=== PATIENT | female | born 1990 | race Hispanic/Latino ===

== ENCOUNTER 2017-03-22 11:15 | Emergency (ER) | payer SELFPAY ==
[2017-03-22 11:32] VITALS: TEMP 96.4
[2017-03-22] MEDS ORDERED: PANTOPRAZOLE SODIUM IV 40 MG VIAL IV ONE (11:45)
[2017-03-22] MEDS ORDERED: ALUM & MAG HYDROX-SIMETHICONE 30 ML, LIDOCAINE VISCOUS 2% 15 ML PO ONE ×2 (11:45)
--- NOTE | 2017-03-22 11:48 | ED.PDOC ---
History of Present Illness - General Chief Complaint: Abdominal Pain Stated Complaint: vomited bile,abd pain Time Seen by Provider: 03/22/17 11:35 Information Source: patient Exam Limitations: no limitations - History of Present Illness Initial Comments: EPIGASTRIC AND RUQ PAIN ONSET LAST NIGHT ASSOCIATED WITH BILIOUS EMESIS X 1. THE PAIN SEEMS TO BE MORE BURNING TYPE THAT RADIATES TO THE BACK RATED 6-7/10. SHE HAS TAKEN ONE TYLENOL 3 AND IBUPROFEN FOR THE PAIN PRIOR TO ARRIVAL. SHE ALSO DISCLOSES THAT SHE HAS CHILDBIRTH 3 MONTHS AGO. Abdominal Pain Onset Location: RUQ, epigastric Pain Radiation: back Quality: moderate, burning Timing/Duration: 7-24 hours Improving Factors: nothing Worsening Factors: nothing Associated Symptoms: back pain, heartburn, nausea/vomiting Review of Systems - Review of Systems Constitutional: States: malaise EENTM: States: no symptoms reported Respiratory: States: no symptoms reported Cardiology: States: no symptoms reported Gastrointestinal/Abdominal: States: abdominal pain, constipation, nausea, vomiting Genitourinary: States: no symptoms reported Musculoskeletal: States: no symptoms reported Skin: States: no symptoms reported Neurological: States: no symptoms reported Endocrine: States: no symptoms reported Hematologic/Lymphatic: States: no symptoms reported Past Medical History (General) - Patient Medical History Hx Congestive Heart Failure: No Hx Diabetes: No Surgical History: no surgical history - Vaccination History Hx Influenza Vaccination: No - Social History Hx Tobacco Use: Yes - Female History Patient is a Female of Child Bearing Age (10 -59 yrs old): Yes - post 3 months and Patient : No Family Medical History - Family History Mother Family History: Unknown Living Status: Unknown Physical Exam - Physical Exam General Appearance: Alert, No apparent distress, Well Developed, Well Hydrated, Well Nourished Eyes, Ears, Nose, Throat Exam: PERRL/EOMI, normal ENT inspection Neck: non-tender, full range of motion, supple, normal inspection Respiratory: chest non-tender, lungs clear, normal breath sounds, no respiratory distress, no accessory muscle use Cardiovascular/Chest: normal peripheral pulses, regular rate, rhythm, no edema, no gallop, no JVD, no murmur Peripheral Pulses: No deficit Gastrointestinal/Abdominal: normal bowel sounds, no organomegaly, no pulsatile mass, distended, other - EPIGASTRIC AND RUQ PAIN ON PALPATION. NEGATIVE CORTES' S SIGN Rectal Exam: deferred Back Exam: normal inspection, no CVA tenderness, no vertebral tenderness Extremity: normal range of motion, non-tender, normal inspection, no pedal edema Neurologic: no motor/sensory deficits, alert, normal mood/affect, oriented x 3 Skin Exam: normal color Lymphatic: no adenopathy Progress - Results/Orders Results/Orders: NO RESULTS YET BUT THE PATIENT RECEIVED A GI SLIDER AND PROTONIX 40 MG IV. SOME IMPROVEMENT, STILL HAVING SOME PAIN. WILL GIVE FENTANYL AND ZOFRAN THE LAB AND IMAGING ARE REPORTED. AMYLASE WAS NORMAL, TEST NEGATIVE, THE TRANSAMINASES WERE ALSO NORMAL AND THE WBC WAS 8,000 WITH A NORMAL DIFFERENTIAL THE PATIENT WILL BE DISCHARGED HOME ON A PPI. Departure - Departure Clinical Impression: Peptic ulcer disease Time of Disposition: 14:54 Disposition: Discharge to Home or Self Care Condition: Good Departure Forms: ED Discharge - Pt. Copy, Patient Portal Self Enrollment Instructions: DI for Abdominal Pain-Adult, DI for Peptic Ulcer Diet: bland diet Activity: increase activity as tolerated Referrals: RONDA CALVIN [Primary Care Provider] - 1-2 Weeks Prescriptions: Lansoprazole [Prevacid] 30 mg PO DAILY #30 cap Home Medications: Ambulatory Orders Lansoprazole [Prevacid] 30 mg PO DAILY #30 cap 03/22/17 Sertraline HCl 25 mg PO BEDTIME 03/22/17 cloNAZepam [KlonoPIN] 0.5 mg PO TID 03/22/17
[2017-03-22] MEDS ORDERED: LIDOCAINE HCL 2% (MOUTH-THROAT) 15 ML UD ONE (11:56)
[2017-03-22] MEDS ORDERED: ALUM & MAG HYDROX-SIMETHICONE 30 ML UD ONE (11:56)
[2017-03-22] MEDS ORDERED: fentaNYL CITRATE INJ 50 MCG/ML AMP IV ONE (12:32)
[2017-03-22] MEDS ORDERED: ONDANSETRON INJ 4 MG/2 ML VIAL IV ONE (12:33)
--- NOTE | 2017-03-22 14:29 | CT ---
EXAM DESCRIPTION: CT ABDOMEN AND PELVIS WITH CONTRAST CLINICAL HISTORY: ABDOMINAL PAIN COMPARISON: None Available. TECHNIQUE: CT of the abdomen and pelvis are performed during IV bolus administration of nonionic contrast. Oral contrast media was not administered This exam was performed according to our departmental dose-optimization program, which includes automated exposure control, adjustment of the mA and/or kV according to patient size and/or use of iterative reconstruction technique. FINDINGS: The lung bases are clear without infiltrate or effusion or mass Mild diffuse fatty infiltration of the liver is present without cystic or solid mass. Gallbladder is well distended without ductal dilation or stone. Moderate bilateral megaly without focal lesion is present. The adrenal glands are normal and the pancreas normally enhances. The kidneys intensely enhance without mass or cyst or stone or hydronephrosis. No perinephric lesions are noted. Retroperitoneum is normal without aortic aneurysm or adenopathy and normal appearance of the vena cava. Moderate stool throughout the colon is present without marked distention or other changes to suggest fecal impaction or severe constipation. Small bowel caliber in the appearance of the stomach is essentially normal without hiatal hernia. Mesenteric adenopathy or masses are not identified. The uterus is anteverted and tilted to the left of midline. No adnexal masses or pelvic or abdominal fluid collections noted. The inguinal regions in the anterior abdominal wall are normal without hernia. The bladder distends normally. The bony spine and pelvis is unremarkable. IMPRESSION: 1. Diffuse mild fatty infiltration of the liver with borderline or mild hepatomegaly and moderate splenomegaly without focal lesions. 2. The remainder the abdomen and pelvic CT with IV contrast enhancement is normal. Electronically signed by: Eliud Parker MD 03/22/2017 2:[address] [facility]
[2017-03-22 14:37] VITALS: BP 100/66; O2SAT 97
== END 2017-03-22 15:05 | disposition home or self-care (01) ==
LOC: ER 11:15
DX: K27.9 Peptic ulcer, site unspecified, unspecified as acute or chronic, without hemorrhage or perforation (principal); Z87.891 Personal history of nicotine dependence
CPT/HCPCS: 36415; 74177; 80053; 83690; 84703; 85025; J2405; J3010